=== PATIENT | female | born 1975 | race Caucasian/White ===

== ENCOUNTER → 2017-01-03 | Outpatient (CLI) | payer OTHER ==
--- NOTE | 2017-01-06 13:48 | MAMMOGRAPHY REPORT ---
BILATERAL DIGITAL DIAGNOSTIC MAMMOGRAM TOMOSYNTHESIS WITH CAD AND TARGETED RIGHT ULTRASOUND: CLINICAL HISTORY: Interval follow-up of bilateral breast masses. TECHNIQUE: Breast tomosynthesis in addition to standard 2D mammography was performed. Current study was also evaluated with a Computer Aided Detection (CAD) system. Bilateral CC and MLO 2-D and tomasa synthesis images were obtained. COMPARISON: Comparison is made to exams dated: 07/14/2015 mammogram, 07/14/2015 ultrasound, and 2014 mammogram - [facility]. BREAST COMPOSITION: There are scattered areas of fibroglandular density in both breasts. FINDINGS: Again noted are multiple circumscribed benign-appearing masses seen within bilateral sb sts, most prominent in the right upper inner quadrant. The masses are stable compared to the prior 06/27/2015 exam. Given the multiplicity and bilaterality as well as stability, the masses are consid ered benign. The remainder of both breasts demonstrate no suspicious masses, calcifications, or are as of architectural distortion. Targeted ultrasound was performed of the right upper inner quadrant in the region of the most promin ent masses. Many of the masses are anechoic and consistent with cysts, including a 6 x 6 mm cyst in the right breast at 1:00, 3 cm from the nipple. Two anechoic cysts are also seen within the right b reast at 1:00, 1 cm from the nipple, one measuring 3 mm and the other measuring 3 mm. In the right breast at 1:00, 2 cm from the nipple, there is an oval parallel circumscribed hypoechoic mass which measures 11 x 8 x 5 mm. This corresponds with the largest mammographic mass and is more solid in ap pearance on ultrasound and likely represents a fibroadenoma. No suspicious masses were evident. IMPRESSION: ACR BI-RADS CATEGORY 2: BENIGN, TARGETED ULTRASOUND ACR BI-RADS CATEGORY 2: BENIGN Bilateral circumscribed benign-appearing masses are stable compared to the 06/27/2015 exam, and are b enign and likely represent a combination of cysts and fibroadenomas. There is no mammographic or ta rgeted sonographic evidence of malignancy. A 1 year screening mammogram is recommended. The patient has been verbally notified of the results. Approximately 10% of breast cancers are not detected with mammography. A negative mammographic repor t should not delay biopsy if a clinically suggestive mass is present. Akiko Salazar M.D. ah/:01/03/2017 12:00:27 Puppet Master: Edith LIMA(R)(M), [facility] letter sent: Normal 1/2 BI-RADS Code: ACR BI-RADS Category 2: Benign Ultrasound BI-RADS: ACR BI-RADS Category 2: Benign
== END | disposition home or self-care (01) ==
LOC: C.MAMM 10:51
PROVIDERS: ATTEND Obstetrics & Gynecology Gynecology
DX: N63 Unspecified lump in breast (principal)